=== PATIENT | male | born 1975 | race African-American/Black ===

== ENCOUNTER 2020-01-28 14:00 | Outpatient (CLI) | payer BC | END 2020-01-28 14:01 | disposition home or self-care (01) | LOC: SLEEPLAB 14:00 | PROVIDERS: ATTEND Nurse Practitioner Family | DX: G47.33 Obstructive sleep apnea (adult) (pediatric) (principal); I10 Essential (primary) hypertension; E66.9 Obesity, unspecified; Z68.41 Body mass index [BMI] 40.0-44.9, adult | CPT/HCPCS: 95806 ==

== ENCOUNTER 2020-03-19 13:30 | Outpatient (CLI) | payer OTHER | END 2020-03-19 13:31 | disposition home or self-care (01) | LOC: DTY/OP 13:30 | PROVIDERS: ATTEND Family Medicine | DX: Z68.42 Body mass index [BMI] 45.0-49.9, adult (principal) | CPT/HCPCS: 97802 ==

== ENCOUNTER 2020-07-13 07:44 | Outpatient (CLI) | payer BC, OTHER ==
[2020-07-13 18:05] LABS: SARS-CoV-2 MS2 Positive; SARS-CoV-2 N Gene Negative; SARS-CoV-2 S Gene Negative; SARS-CoV-2 by NAA Not Detected (NotDetected); SARS-CoV-2 orf1ab Negative
== END 2020-07-13 07:45 | disposition home or self-care (01) ==
LOC: LABBT 07:44
PROVIDERS: ATTEND Internal Medicine Gastroenterology
DX: K92.1 Melena (principal); E66.01 Morbid (severe) obesity due to excess calories; Z20.828 Contact with and (suspected) exposure to other viral communicable diseases; Z80.9 Family history of malignant neoplasm, unspecified
CPT/HCPCS: 87635; U0003

== ENCOUNTER 2020-07-15 10:33 | Day surgery (SDC) | payer BC ==
[2020-07-13 15:39] VITALS: BMI 46.0
[~2020-07-15 10:33] MED LIST: Lidocaine 1% PF 5 ML VIAL ONE; PROPOFOL 200 MG/20 ML VIAL ONE
--- NOTE | 2020-07-15 15:36 | OP ---
DATE OF PROCEDURE: 07/15/2020 PROCEDURE PERFORMED: Colonoscopy with biopsy. PREPROCEDURE DIAGNOSES: 1. Hematochezia. 2. Possible family history of colon cancer. POSTPROCEDURE DIAGNOSES: 1. Exam to cecum; good bowel preparation. 2. Diffusely nodular colonic mucosa involving the descending and sigmoid colon, biopsied for histology. 3. No evidence of discrete polyp or mass. 4. No active bleeding. 5. Small internal hemorrhoids, not actively bleeding. 6. Otherwise normal colonoscopy. PROCEDURE IN DETAIL: Written informed consent was obtained. The patient was brought to the endoscopy suite. Total intravenous anesthesia was administered via Mrs. Tania MalaveKAREN shields. The patient was placed in the left lateral decubitus position. A digital rectal exam revealed no abnormalities. A Pentax video colonoscope was inserted through the anal canal and advanced under direct visualization to the cecum. Position in the cecum was verified by clear identification of the appendiceal orifice and the ileocecal valve. The quality of the bowel preparation was good. Each colon segment was examined carefully as the colonoscope was slowly withdrawn from the cecum. In the descending colon and to a more noticeable degree in the sigmoid colon, the mucosa displayed a diffusely nodular appearance. Some of the nodular like lesions in the distal sigmoid displayed small red spots, but no active ulceration, bleeding, or obvious mass. The mucosa was very soft and pliable when probed with the biopsy forceps. Multiple biopsies were obtained in the descending, upper sigmoid, and lower sigmoid for histology. A retroflexed exam in the rectum demonstrated small internal hemorrhoids that were not actively bleeding. The colon was decompressed as the colonoscope was withdrawn from the patient. There were no immediate complications. He was transferred to the Day Stay surgery area for postprocedure monitoring. RECOMMENDATIONS: 1. Await pathology results. 2. Ask the patient to call me in 1 week for pathology results. 3. Sitz baths b.i.d. p.r.n. hemorrhoids. 4. Analpram-HC cream 2.5%, apply to rectal area 3 times daily as needed for hemorrhoids. 5. Date of repeat colonoscopy will be given once pathology results were reviewed. 6. Follow up in the GI office in about 2 to 3 weeks. Job ID: [id number]
== END 2020-07-15 15:18 | disposition home or self-care (01) ==
LOC: SDC 10:33
PROVIDERS: ATTEND Internal Medicine Gastroenterology
PROC: 0DBN8ZX Excision of Sigmoid Colon, Via Natural or Artificial Opening Endoscopic, Diagnostic (ICD-10-PCS; principal; 2020-07-15)
PROC: 0DBM8ZX Excision of Descending Colon, Via Natural or Artificial Opening Endoscopic, Diagnostic (ICD-10-PCS; principal; 2020-07-15)
DX: K92.1 Melena (principal); K64.8 Other hemorrhoids; I11.0 Hypertensive heart disease with heart failure; I50.9 Heart failure, unspecified; G47.33 Obstructive sleep apnea (adult) (pediatric); G89.29 Other chronic pain; F20.9 Schizophrenia, unspecified; F17.200 Nicotine dependence, unspecified, uncomplicated; F31.9 Bipolar disorder, unspecified; E66.01 Morbid (severe) obesity due to excess calories; Z68.42 Body mass index [BMI] 45.0-49.9, adult; Z79.899 Other long term (current) drug therapy
CPT/HCPCS: 88305; J2704